=== PATIENT | female | born 1950 | race Hispanic/Latino ===

== ENCOUNTER 2018-07-19 10:16 | Emergency (ER) | payer BC, MEDICARE ==
[2018-07-19 10:18] VITALS: BMI 21.9
[2018-07-19 10:19] VITALS: BP 112/76; PULSE 86; RESP 18; TEMP 98.5; O2SAT 100
[2018-07-19] MEDS ORDERED: Lidocaine 1% (10 ml) Inj INFIL STA (11:28)
[2018-07-19] MEDS ORDERED: Lidocaine Hydrochloride 1% 10 ML ONE (11:43)
--- NOTE | 2018-07-19 12:18 | ED PDOC ---
HPI: General Adult Time Seen by Provider: 07/19/18 10:22 Chief Complaint (Nursing): Trauma Chief Complaint (Provider): Facial abrasions, laceration of inner lip History Per: Patient History/Exam Limitations: no limitations Onset/Duration Of Symptoms: Days Have you had recent travel within the past 21 days to any of the following countries: [place], [place], [place] or [place]?: No Current Symptoms Are (Timing): Still Present Additional Complaint(s): 67 yo female presents for evaluations of fall. Pt states she finished a 5K and tripped on mat at finish line. Pt has several facial abrasions and laceration of the upper inner lip. PT denies headache, dizziness or N/V. Pt reports localized pain of upper lip and face. Pt reports tetanus UTD. Past Medical History Reviewed: Historical Data, Nursing Documentation, Vital Signs Vital Signs: Last Vital Signs Temp 98.5 F 07/19/18 10:19 Pulse 86 07/19/18 10:19 Resp 18 07/19/18 10:19 BP 112/76 07/19/18 10:19 Pulse Ox 100 07/19/18 10:19 Primary Care Provider: FAMILY PROVIDER,NO - Medical History PMH: Malignancy (breast ca 2006) Denies: Chronic Kidney Disease - Surgical History Surgical History: Appendectomy - Family History Family History: States: No Known Family Hx - Living Arrangements Living Arrangements: With Family - Social History Current smoker - smoking cessation education provided: No - Immunization History Hx Tetanus Toxoid Vaccination: No Hx Influenza Vaccination: No Hx Pneumococcal Vaccination: No - Home Medications Home Medications: Ambulatory Orders Medication Instructions Recorded Atorvastatin Calcium [Lipitor] 10 mg PO DAILY 05/09/13 Pantoprazole [Protonix] 40 mg PO DAILY 05/09/13 - Allergies Allergies/Adverse Reactions: Allergies Allergy/AdvReac Type Severity Reaction Status Date / Time Sulfa (Sulfonamide Allergy RASH Verified 07/19/18 10:34 Antibiotics) Review of Systems ROS Statement: Except As Marked, All Systems Reviewed And Found Negative Constitutional: Negative for: Fever, Chills Cardiovascular: Negative for: Chest Pain, Orthopnea Gastrointestinal: Negative for: Nausea, Vomiting, Abdominal Pain Skin: Positive for: Other Neurological: Negative for: Weakness, Numbness, Confusion, Seizures, Altered Mental Status, Headache, Dizziness Physical Exam - Reviewed Nursing Documentation Reviewed: Yes Vital Signs Reviewed: Yes - Physical Exam Appears: Positive for: Well, Non-toxic, No Acute Distress Head Exam: Positive for: ATRAUMATIC, NORMAL INSPECTION, NORMOCEPHALIC Skin: Positive for: Warm. Negative for: Normal Color (multiple superfical abrasions on the face, 1.5cm inner upper lip; (+) abrasion on the right ring her finger ) Eye Exam: Positive for: Normal appearance, EOMI, PERRL ENT: Positive for: Normal ENT Inspection Neck: Positive for: Normal, Painless ROM Respiratory: Negative for: Accessory Muscle Use, Respiratory Distress Back: Positive for: Normal Inspection Extremity: Positive for: Normal ROM Neurological/Psych: Positive for: Awake, Alert, Normal Tone - ECG O2 Sat by Pulse Oximetry: 100 Pulse Ox Interpretation: Normal Medical Decision Making Medical Decision Making: Discussed with Dr. Rayna Parikh, who will see the patient at 1pm. Procedures - Laceration/Wound Repair Upper inner lip Wound Length (cm): 1.5 Wound's Depth, Shape: irregular Wound Explored: clean Betadine Prep?: No Anesthesia: 1% Lidocaine Wound Repaired With: Sutures Suture Size/Type: 4:0 Wound Complexity: Simple (#3) Disposition - Clinical Impression Clinical Impression: Lip laceration - Disposition Disposition: Routine/Home Disposition Time: 12:12 Condition: GOOD Instructions: Laceration Repair With Stitches (DC)
== END 2018-07-19 12:20 | disposition home or self-care (01) ==
LOC: H.ER 10:16
DX: S01.511A Laceration without foreign body of lip, initial encounter (principal); W19.XXXA Unspecified fall, initial encounter; Y92.89 Other specified places as the place of occurrence of the external cause

== ENCOUNTER 2018-07-28 11:31 | Emergency (ER) | payer MEDICARE ==
[2018-07-28 12:02] VITALS: BP 115/57; PULSE 63; RESP 16; TEMP 98.6; O2SAT 99; BMI 22.1
[2018-07-28] MEDS ORDERED: Naproxen 500 MG TAB PO STA (12:49)
[2018-07-28] MEDS ORDERED: Naproxen 500 MG TAB PO ONE (13:01)
--- NOTE | 2018-07-28 13:02 | ED PDOC ---
HPI: Trauma/Fall - HPI Time Seen by Provider: 07/28/18 12:26 Chief Complaint (Nursing): Rib Injury Chief Complaint (Provider): Right Rib Pain History Per: Patient History/Exam Limitations: no limitations Injury Occurred (Timing): Days Ago: (07/19/18) Additional Complaint(s): 67 year old female presents to the ED for evaluation of right rib pain. Patient reports that on 07/19/18 she was running a 5k and tripped at the finish line, causing her to strike the concrete. At that time, she was seen in this ED for facial lacerations and received stitches, but did not feel any rib pain until the next day. She states the rib pain has been persistent since then, worse with movement, but denies any associated bruising and shortness of breath. Did not take any medications for symptoms. No other complaints. Past Medical History Reviewed: Historical Data, Nursing Documentation, Vital Signs Vital Signs: Last Vital Signs Temp 98.6 F 07/28/18 12:01 Pulse 63 07/28/18 12:01 Resp 16 07/28/18 12:01 BP 115/57 L 07/28/18 12:01 Pulse Ox 99 07/28/18 12:01 Primary Care Provider: Non [facility] Provider, (in [facility], Rajiv Bueno) - Medical History PMH: Malignancy (breast ca 2006) - Surgical History Surgical History: Appendectomy, Hernia Repair Other surgeries: meniscus repair, myomectomy, surg secondary to breast cancer - Family History Family History: States: Unknown Family Hx - Social History Current smoker - smoking cessation education provided: No Alcohol: None Drugs: Denies - Home Medications Home Medications: Ambulatory Orders Medication Instructions Recorded Atorvastatin Calcium [Lipitor] 10 mg PO DAILY 05/09/13 Pantoprazole [Protonix] 40 mg PO DAILY 05/09/13 Acetaminophen [Acetaminophen 8 650 mg PO Q8 PRN #21 tablet.er 07/28/18 Hour] Meloxicam [Mobic] 15 mg PO DAILY PRN #14 tab 07/28/18 - Allergies Allergies/Adverse Reactions: Allergies Allergy/AdvReac Type Severity Reaction Status Date / Time Sulfa (Sulfonamide Allergy RASH Verified 07/28/18 12:21 Antibiotics) Review of Systems ROS Statement: Except As Marked, All Systems Reviewed And Found Negative Respiratory: Negative for: Shortness of Breath Musculoskeletal: Positive for: Other (right rib pain, worse with movement) Skin: Negative for: Bruising Physical Exam - Reviewed Nursing Documentation Reviewed: Yes Vital Signs Reviewed: Yes - Physical Exam Comments: GENERALIZED APPEARANCE:Patient is awake, alert, oriented x3 in no acute distress. Resting comfortably. SKIN: Warm, dry; (-) cyanosis. NECK: FROM, Supple (-) tenderness ENT: Mucus membranes moist. Airway patent, (-) stridor. CHEST AND RESPIRATORY: (+) tenderness to mid, lateral aspect of right ribs just lateral of breast, (-) ecchymosis, (-) palpable deformity, (-) edema, (-) crepitus. Lungs: Lungs clear to auscultation bilaterally. Breath sounds equal, respirations even and non-labored bilaterally. HEART AND CARDIOVASCULAR: RRR, (-) irregularity ABDOMEN AND GI: Soft, (-) tenderness (-) CVA tenderness (-) distention NEURO AND PSYCH: Mental status as above. Gait: steady. Speech: clear. (-) faci al asymmetry (-) aphasia. Normal cognition. - ECG O2 Sat by Pulse Oximetry: 99 (RA) Pulse Ox Interpretation: Normal Medical Decision Making Medical Decision Making: Initial Impression: acute rib pain s/p fall, r/o fracture Time: 1250 Initial Plan: --Right ribs and chest XR --Naproxen 500mg PO --Reevaluation 1325 XR FINDINGS: RIGHT RIBS: No fracture or focal lesion visualized. LUNGS: Clear. PLEURA: No pneumothorax or pleural fluid. CARDIOVASCULAR: Normal cardiac size. No pulmonary vascular congestion. No aortic atherosclerotic calcification present OTHER FINDINGS: Surgical clips in right axilla. IMPRESSION: No evidence of right rib fracture. No acute abnormality. 1330 On re-evaluation, patient reports improvement of symptoms. On exam, patient remains AAOx3, in no acute distress. Lungs clear to auscultation, cardiac RRR. Vitals stable. Lab/Diagnostic results d/w the patient in great detail. Diagnosis of rib contusion s/p fall d/w the patient. Based on history, exam and diagnostic results, plan will be for outpatient follow up with PMD. Patient instructed to follow-up with pmd / referral provided / the clinic in 1- 2 days without fail. Advised to take medication as prescribed. Return to the emergency room at any time for any new or worsening symptoms. Patient states she fully agrees with and understands discharge instructions. States that she agrees with the plan and disposition. Verbalized and repeated discharge instructions and plan. I have given the patient opportunity to ask any additional questions. Scribe Attestation: Documented by Nabila Dong, acting as a scribe for Cami Kerns PA-C. Provider Scribe Attestation: All medical record entries made by the Scribe were at my direction and personally dictated by me. I have reviewed the chart and agree that the record accurately reflects my personal performance of the history, physical exam, medical decision making, and the department course for this patient. I have also personally directed, reviewed, and agree with the discharge instructions and disposition. Disposition - Clinical Impression Clinical Impression: Contusion of rib on right side - Patient ED Disposition Is Patient to be Admitted: No Counseled Patient/Family Regarding: Studies Performed, Diagnosis, Need For Followup, Rx Given - Disposition Referrals: primary, doctor [Other] Disposition: Routine/Home Disposition Time: 13:30 Condition: STABLE Additional Instructions: The emergency medical care you received today was directed at your acute symptoms. If you were prescribed any medication, please fill it and take as directed. It may take several days for your symptoms to resolve. Return to the Emergency Department if your symptoms worsen, do not improve, or if you have any other problems. Please contact your doctor in 2 days for re-evaluation and follow up / or call one of the physicians/clinics you have been referred to that are listed on the Patient Visit Information form that is included in your discharge packet. Bring any paperwork you were given at discharge with you along with any medications you are taking to your follow up visit. Our treatment cannot replace ongoing medical care by a primary care provider (PCP) outside of the emergency department. Prescriptions: Acetaminophen [Acetaminophen 8 Hour] 650 mg PO Q8 PRN #21 tablet.er PRN Reason: Pain, Moderate (4-7) Meloxicam [Mobic] 15 mg PO DAILY PRN #14 tab PRN Reason: Pain, Moderate (4-7) Instructions: Contusion (DC), Bruised Rib (DC) Forms: [employer] ([place]) Print Language: [place]QI - POA Present On Arrival: None
--- NOTE | 2018-07-28 13:28 | RAD ---
Date of service: 07/28/2018 PROCEDURE: Radiographs of the Chest and Right Ribs. HISTORY: s/p fall 07/19/18, pain COMPARISON: None available. TECHNIQUE: Frontal radiograph of the chest and multiple oblique radiographs of the right ribs were obtained. 4 views obtained. FINDINGS: RIGHT RIBS: No fracture or focal lesion visualized. LUNGS: Clear. PLEURA: No pneumothorax or pleural fluid. CARDIOVASCULAR: Normal cardiac size. No pulmonary vascular congestion. No aortic atherosclerotic calcification present OTHER FINDINGS: Surgical clips in right axilla. IMPRESSION: No evidence of right rib fracture. No acute abnormality.
== END 2018-07-28 14:00 | disposition home or self-care (01) ==
LOC: H.ER 11:31
DX: S20.211A Contusion of right front wall of thorax, initial encounter (principal); Z85.3 Personal history of malignant neoplasm of breast; Z88.2 Allergy status to sulfonamides